=== PATIENT | female | born 1950 | race Caucasian/White ===

== ENCOUNTER → 2016-11-24 | Outpatient (CLI) | payer MEDICARE, OTHER ==
[2016-11-24 10:58] LABS: Blood Urea Nitrogen 10 mg/dL (7-17); Non-African American GFR(MDRD) >60 (>60 ml/min/1.73 sqM)
== END | disposition home or self-care (01) ==
LOC: LABWHC1 09:21
PROVIDERS: ATTEND Otolaryngology
DX: K11.5 Sialolithiasis (principal)
CPT/HCPCS: 36415; 82565; 84520

== ENCOUNTER → 2016-11-30 | Outpatient (CLI) | payer MEDICARE, OTHER ==
--- NOTE | 2016-11-30 10:06 | CT ---
EXAMINATION TYPE: CT soft tissue neck wo/w con DATE OF EXAM: 11/30/2016 9:53 AM COMPARISON: NONE HISTORY: R22.1 bilateral sialolitihiasis CONTRAST: CT scan of the neck is performed without and with IV Contrast, patient injected Omni 300/100 ml Unenhanced followed by Contrast enhanced CT of the neck was performed from the skull base through the lung apices. Unenhanced portion of the study fails to demonstrate evidence for sialolithiasis. AIRWAY: The supraglottic, glottic, and subglottic portions of the airway appear patent and free of mass. SALIVARY GLANDS: The submandibular and parotid glands are free of mass or inflammatory process. THYROID GLAND: No nodules or masses seen. LYMPH NODES: No adenopathy seen greater than 1cm. LUNG APICES: No nodule or mass is seen. OTHER: Vascular structures are patent. No significant degenerative change of the cervical spine. N o abscess seen. IMPRESSION: No distinct abnormality is appreciated.
== END | disposition home or self-care (01) ==
LOC: RADCTMAIN 09:08
PROVIDERS: ATTEND Otolaryngology
DX: K11.5 Sialolithiasis (principal)
CPT/HCPCS: 70492; Q9967

== ENCOUNTER → 2016-12-11 | Outpatient (CLI) | payer MEDICARE, OTHER ==
--- NOTE | 2016-12-11 16:55 | FL ---
EXAMINATION TYPE: FL sialography DATE OF EXAM: 12/11/2016 3:31 PM HISTORY: Swelling mass lump in neck Informed consent was obtained and all the patient's questions were answered. A 30-gauge sialography catheter was placed into the opening of the left-sided Martin's duct. Contras t was injected however there was abrupt termination of contrast approximately 2 cm from the Martin d uct opening indicating complete obstruction. Distal portions of the duct or intraglandular branches a re not visualized. 1. Complete obstruction of Omar's duct approximately 2 cm from its opening.
== END | disposition home or self-care (01) ==
LOC: RADFLWHC 14:08
PROVIDERS: ATTEND Otolaryngology
DX: K11.8 Other diseases of salivary glands (principal)
CPT/HCPCS: 70390; Q9965

== ENCOUNTER 2016-12-25 08:29 | Day surgery (SDC) | payer MEDICARE, OTHER ==
[2016-12-20 12:39] VITALS: BMI 36.3
--- NOTE | 2016-12-25 07:17 | HP ---
DATE OF ADMISSION: Chief complaint is swelling of the left submandibular gland. HISTORY OF PRESENT ILLNESS: The patient is a very pleasant 66-year-old female who was recently seen in my office claiming to have a history of passing several stones in her mouth. She was recently seen in Dr. Hernandez's office, an oral maxillofacial surgeon and it was noted that she had evidence of stones lodged in both [place]'s duct on the floor of the mouth. She has never had surgery for this. She states that periodically the left side of her neck would swell and eventually would gradually go down. During these episodes it would not require any type of antibiotic treatment and it was not excruciatingly painful. At the time that the patient was seen in my office, clinical examination with attention to the oropharynx and the floor of the mouth revealed that the patient had palpable stone in the oral portions of the right and left Omar's duct of the right and left submandibular gland. Subsequently, sialograms were performed and this showed that there were obstructing stones (sialolithiasis) of both Omar's duct with the left side being completely obstructed. After much discussion with the patient, she felt that the stones on the right side had been present longer and would prefer to have those removed first and we would bring her back at a later date to remove the stones from the left side. Therefore, it was recommended patient undergo a marsupialization of the right Omar's duct intraorally under general anesthesia. Past medical history reveals that the patient has no known allergies to medications. Current medications include: 1. Prilosec. 2. A baby aspirin. The review of systems is completely unremarkable. Previous surgeries include a radical hysterectomy, cholecystectomy, hemorrhoid surgery, she is 2 para, 2 , 0 miscarriage. PHYSICAL EXAMINATION: This patient is a very pleasant 66-year-old female who is alert and cooperative. HEENT EXAMINATION: Patient is normocephalic. Tympanic membranes are normal. Middle ear spaces are free of any fluid or infection. Pupils equal, round, and reactive to light and accommodation. Extraocular movements are within normal limits. Intranasal examination reveals moderate to severe septal deviation with compensatory hypertrophy of the inferior turbinates. Examination of oropharynx with attention to the floor of the mouth and bimanual palpation of the floor of mouth reveals both right and left Omar's duct occluded with multiple firm, well-circumscribed, hard stones. Palpation of the neck is negative for any significant swelling of either right or left submandibular gland. The remainder of the head and neck exam including cranial nerves 2 through 12 are all within normal limits. CHEST/CARDIOVASCULAR: Both lung north are clear to percussion and auscultation. Patient is in regular sinus rhythm. S1 and S2 are present without any murmurs, S3s or S4s. Peripheral pulses are bilaterally symmetrical and within normal limits. ABDOMEN: There is no evidence of any masses, megaly or tenderness. Abdomen is soft. Skin is unremarkable. Musculoskeletal and neurological are unremarkable. PELVIC/RECTAL EXAM: The pelvic rectal exam is deferred at this time because the patient has this done on a regular basis at her primary physician's office. The remainder of physical exam is unremarkable. IMPRESSION: Bilateral sialolithiasis of [place]'s duct of the right and left submandibular gland. PLAN: The patient is scheduled to undergo a marsupialization of the right [place]'s duct of the right submandibular gland under general anesthesia in the a.m. Attention RNs in the presurgical area. The only preoperative prophylactic antibiotics that were ordered by me or my office are 2 million units of aqueous Pen-G IV to be given once an intravenous line has been established. I did not order any other antibiotic such as Ancef or Flagyl. If these have been ordered, please return them to pharmacy and make sure that the patient's account is credited appropriately. In addition, I have ordered that the patient receive 1000 mg of Ofirmev IV, again to be given once an intravenous line has been established. The 2 million units of aqueous Pen-G and 1000 mg of Ofirmev, both to be given IV are the only medications that were ordered by my office. Again, I did not order any other prophylactic antibiotic such as Flagyl or and Ancef. I have explained the operation/procedure to the patient, including the risks, benefits, side effects, alternative therapies (including not receiving the proposed treatment or service), the likelihood of the patient achieving his/her goals, and potential recuperation problems for the procedure/sedation/analgesia, as well as any blood products, if indicated. I also explained to the patient the risks, benefits, and side effects of the alternatives, as well as the risks related to not receiving the proposed procedure, care treatment or services.
[~2016-12-25 08:29] MED LIST: DEXAMETHASONE SOD PHOSPHATE 10 MG/ML 1 ML VIAL IV ONE; FAMOTIDINE 20 MG/2 ML VIAL IV PRN; HYDROmorphone 1 MG/ML 1 ML SYRINGE IVP PRN; LACTATED RINGERS 1,000 ML IV SCH; LIDOCAINE 1% 20 ML VIAL (10MG/ML) FOR IV START INTRADERMA PRN; MIDAZOLAM 2 MG/2 ML VIAL IV PRN; ceFAZolin 2 GM in SODIUM CHLORIDE 0.9% 100 ML IVPB ONE; metroNIDAZOLE-NS PMX 500 MG in SALINE 1 100ML.BAG IVPB ONE
[2016-12-25] MEDS ORDERED: ACETAMINOPHEN IV (For NPO) 1,000 MG in EMPTY BAG 1 BAG IVPB ONE (09:45)
[2016-12-25] MEDS ORDERED: PENICILLIN G POTASSIUM 2,000,000 UNIT in DEXTROSE 5% IN WATER 100 ML IVPB ONE ×2 (09:45)
[2016-12-25] MEDS ORDERED: ROCURONIUM BROMIDE 10 MG/ML 10 ML VIAL IV ONE (10:29)
[2016-12-25] MEDS ORDERED: NEOSTIGMINE 1 MG/ML 10 ML VIAL ONE (10:29)
[2016-12-25] MEDS ORDERED: SUCCINYLCHOLINE CHLORIDE 100 MG/5 ML SYR IV ONE (10:29)
[2016-12-25] MEDS ORDERED: MIDAZOLAM 2 MG/2 ML VIAL ONE (10:29)
[2016-12-25] MEDS ORDERED: fentaNYL (PF) 50 MCG/ML 2 ML AMP ONE (10:29)
[2016-12-25] MEDS ORDERED: DEXAMETHASONE SOD PHOS (MDV) 100 MG/10 ML VIAL ONE (10:29)
[2016-12-25] MEDS ORDERED: LIDOCAINE 1% INJ 10MG/ML (20 ML MDV) ONE (10:29)
[2016-12-25] MEDS ORDERED: PROPOFOL 10 MG/ML 20 ML VIAL IV ONE (10:29)
[2016-12-25] MEDS ORDERED: EPINEPHrine 1 MG/ML (MDV) 30 ML VIAL TOPICAL ONE (12:13)
[2016-12-25] MEDS ORDERED: LACTATED RINGERS 1,000 ML IV ONE (12:39)
[2016-12-25 13:08] VITALS: TEMP 97.4
[2016-12-25 14:40] VITALS: BP 136/83; PULSE 85; RESP 16
--- NOTE | 2016-12-26 05:20 | OP ---
DATE OF SERVICE: 12/25/2016 SURGEON: SWATI DOW MD EMERGENCY DEPARTMENT COORDINATOR: PREOPERATIVE DIAGNOSIS: Sialolithiasis of the left and right submandibular glands. POSTOPERATIVE DIAGNOSIS: Sialolithiasis of the left and right submandibular glands. OPERATION: Marsupialization of the left Wood's duct of the submandibular gland/left. ANESTHESIA: General. ESTIMATED BLOOD LOSS: Less than 5 mL. SPECIMENS REMOVED: COMPLICATIONS: None. OPERATIVE FINDINGS: OPERATIVE PROCEDURE: This procedure was initially scheduled to take approximately one half hour to a maximum of 45 minutes instead surgery was started at approximately 10:25 a.m. and was not completed until approximately 12:30 p.m. for a total operating time of approximately 2 hours, which is well beyond the extended time. The reason for this extended time was because of the scarring around the orifice of the left and right Wood's duct which made finding the opening quite difficult despite use of the Zeiss operating microscope. In addition to this, there was a large stone lodged in the left Wood's duct. The patient was placed on the operating table in the supine position. After uneventful induction and endotracheal intubation, satisfactory general anesthesia was obtained. Next, the patient's head was draped in the usual and customary fashion. Initially a large adult dental bite block was placed into the right buccal sulcus. The tip of the tongue was grasped with a towel clip and pulled anteriorly. This exposed the floor of the mouth and orifices of the right and left Omar's duct of the right and left submandibular glands. Initial attempt was made to dilate the orifice of the right Wood's duct. However, this proved to be almost impossible to find because of extensive scarring. A similar problem was encountered by the radiology department in an attempt to perform a sialogram on this side. Therefore, we decided to perform the surgery on the left Omar's duct. Using the Zeiss operating microscope and under magnified visualization, once again it was noted that the orifice was extremely stenotic. Despite using lemon juice to stimulate the salivary flow another anesthetic agents very little salivary flow was able to be observed. The process of finding the actual opening of the duct was extremely tedious and required extensive bimanual palpation of the gland itself in an effort to be able to notice a few drops of the saliva coming from the stenotic duct of the orifice. Once this was discovered initially a lacrimal probe was carefully placed into the opening to slightly dilate it. This was followed by the use of multiple sizes of lacrimal probes which were carefully extended further and further into the duct with attention of trying to avoid creating a false lumen of the duct itself. In the process of advancing the lacrimal ducts to beginning with 00 and working up and to a #5, it is felt that the stone may have been pushed more distally in the duct than its original presentation. Therefore no attempt was made to try and retrieve it for concern of possible neural injury. The duct was widely dilated and then subsequently using a pair of curved Chavo scissors was widely marsupialized in the usual and customary fashion. The duct itself was prevented from resealing by placing several interrupted simple 4-0 sutures along the edges of the marsupialized duct on the right and left side. This would prevent the actual ductal tissue from resealing. Palpation of the gland did elicit some salivary flow. However, no stone was actually able to be elicited and it is felt that in the future that this patient will very easily pass a stone now that she has an extremely wide opening in the left Wood's duct. The plan is to bring her back in 2 or 3 weeks if necessary and possibly attempt marsupialize the right side also. It is interesting to note that the patient has had most of her problems on the left side although stones have been noted on the right Wood's duct also. At this point, the procedure was terminated. There were no intraoperative complications. The patient was given 10 mg of Decadron intraoperatively to reduce any postoperative edema of the tongue. Estimated blood loss was less than 5 mL. The patient tolerated the procedure well and was returned to recovery room in satisfactory condition. Again, this procedure which normally would take about 30 minutes took slightly over 2 hours which is well beyond the normal operating time and the reason for this was due to extenuating circumstances of the extreme scarring from the repeated infections and the chronic infection due to the presence of sialolithiasis in the left Wood's duct of the left submandibular gland.
== END 2016-12-25 14:51 | disposition home or self-care (01) ==
LOC: OR 08:29
PROVIDERS: ATTEND Otolaryngology
DX: K11.5 Sialolithiasis (principal); K21.9 Gastro-esophageal reflux disease without esophagitis; Z79.82 Long term (current) use of aspirin; Z79.899 Other long term (current) drug therapy
CPT/HCPCS: 42650; J0171; J2250; J1100 ×2; J2540; J2710; J2001; J3010; J0131; J0330; J2704

== ENCOUNTER → 2017-02-05 | Outpatient (CLI) | payer MEDICARE, OTHER ==
--- NOTE | 2017-02-06 10:57 | MM ---
Reason for exam: screening (asymptomatic). Last mammogram was performed 1 year ago. History: Patient is postmenopausal and has history of endometrial cancer at age 36. Family history of premenopausal breast cancer in sister at age 42 and breast cancer in paternal aunt. Took hormonal contraceptives for 4 years beginning at age 19. MG 3D Screening Mammo W/Cad Bilateral CC and MLO view(s) were taken. Prior study comparison: February 04, 2016, bilateral MG screening mammo w CAD. February 01, 2015, bilateral MG screening mammo w CAD. The breast tissue is heterogeneously dense. This may lower the sensitivity of mammography. Finding: There are typically benign dystrophic, round calcifications in both breasts. There is a chronic nodularity in the left breast. There is no discrete abnormality. ASSESSMENT: Benign, BI-RAD 2 RECOMMENDATION: Routine screening mammogram of both breasts in 1 year.
== END | disposition home or self-care (01) ==
LOC: RADMAMWWP 07:49
PROVIDERS: ATTEND Family Medicine
DX: Z12.31 Encounter for screening mammogram for malignant neoplasm of breast (principal)
CPT/HCPCS: 77063; G0202

== ENCOUNTER → 2018-05-01 | Outpatient (CLI) | payer MEDICARE, OTHER ==
[2018-05-01 07:43] LABS: Blood Urea Nitrogen 9 mg/dL (7-17)
--- NOTE | 2018-05-01 08:20 | CT ---
EXAMINATION TYPE: CT soft tissue neck w con DATE OF EXAM: 05/01/2018 COMPARISON: 11/30/2016 HISTORY: C7-year-old female Bilateral salivary stones TECHNIQUE: Contiguous axial scanning of the soft tissues of the neck performed with IV Contrast, adrian ent injected with 100 mL of Isovue 300. Coronal/sagittal reconstructions performed. CT DLP: 573.9 mGycm Automated exposure control for dose reduction was used. FINDINGS: Stable small 6 mm calcified nodule lower pole left thyroid lobe. No abnormal enlargement or inflammation is seen of either submandibular gland. No sialolith or abnorm al calcification is seen along the course of either submandibular duct. Parotid glands are satisfactory. Visualized intracranial structures, paranasal sinuses, orbits and globes, and mastoid air cells appea r clear. Nasopharynx is clear. Retropharyngeal course of the right ICA causing posterior impression on the right side of the hypopha rynx. Bilateral palatine tonsillar hypertrophy is unchanged with a small focus of calcification on the righ t suggesting sequela of prior infection. Additional bilateral lingual tonsillar hypertrophy effacing the vallecular space, unchanged from 11/30/2016 as well. The epiglottis and prevertebral soft tissues are within normal limits. Gliotic and subglottic structures as well as the tracheal column and visualized upper lungs are clear . A couple tiny emphysematous cysts may be present in the right upper lobe. Some prominent but nonenlarged upper cervical lymph nodes measure up to 1.2 cm short axis, unchanged from prior. No cervical lymphadenopathy by CT size criteria. Bones: No osseous destructive process. IMPRESSION: 1. BILATERAL PALATINE AND LINGUAL TONSILLAR HYPERTROPHY IS UNCHANGED FROM 11/30/2016. 2. NO DISCRETE SIALOLITH OR SALIVARY GLAND INFLAMMATION IS SEEN.
== END | disposition home or self-care (01) ==
LOC: RADCTMAIN 07:18
PROVIDERS: ATTEND Otolaryngology
DX: J35.1 Hypertrophy of tonsils (principal); K11.5 Sialolithiasis
CPT/HCPCS: 82565; 84520; 70491; 36415; Q9967

== ENCOUNTER → 2018-05-13 | Outpatient (CLI) | payer MEDICARE, OTHER ==
[2018-05-13 09:31] LABS: Uric Acid 4.2 mg/dL (3.7-7.4)
[2018-05-13 09:36] LABS: Ionized Calcium 5.1 mg/dL (4.5-5.3)
== END | disposition home or self-care (01) ==
LOC: LABWHC1 08:39
PROVIDERS: ATTEND Otolaryngology
DX: K11.5 Sialolithiasis (principal)
CPT/HCPCS: 36415; 82330; 84550

== ENCOUNTER → 2018-05-16 | Outpatient (CLI) | payer MEDICARE, OTHER ==
--- NOTE | 2018-05-16 08:19 | US ---
EXAMINATION TYPE: US thyroid st tissue head/neck DATE OF EXAM: 05/16/2018 COMPARISON: Correlation CT 05/01/2018 CLINICAL HISTORY: 67-year-old female E04.1 Thyroid Nodule. Thyroid nodule seen on CT TECHNIQUE: Multiple sonographic images of the thyroid gland are obtained. FINDINGS: GLAND SIZE: Right Lobe: 3.3 x 1.2 x 1.1 cm Overall Parenchyma: heterogenous Left Lobe: 3.2 x 1.2 x 1.3 cm Overall Parenchyma: heterogeneous Isthmus Thickness: 0.3 cm NODULES RIGHT: # of nodules measured on right: 1 1. 0.5 X 0.4 x 0.5 cm hypoechoic solid nodule at the mid pole with well-defined margins; This nodu le is wider than tall and shows no intranodular vascularity. Prior size: No prior LEFT: # of nodules measured on left: 2 1. 0.7 X 0.4 x 0.5 cm hypoechoic solid nodule medial with well-defined margins; This nodule is wide r than tall and shows no intranodular vascularity. Prior size: No prior 2. 0.4 X 0.3 x 0.5 cm calcified nodule at the deep mid pole with poorly defined margins. Prior size: Possible nodule seen on CT Bilateral neck scanned, no evidence of lymphadenopathy. Sonography notes: Multiple, sub-centimeter nodules (up to 4) on each lobe most of which appear cystic , largest nodule on each lobe measured, including small calcified nodule on left as seen on CT. IMPRESSION: Bilateral subcentimeter nodules measuring up to 7 mm with a 5 mm calcified nodule left lower pole as seen on CT.
[2018-05-16 08:35] LABS: T4, Free (Free Thyroxine) 0.81 ng/dL (0.78-2.19)
== END | disposition home or self-care (01) ==
LOC: RADUSWWP 07:25
PROVIDERS: ATTEND Otolaryngology
DX: E04.1 Nontoxic single thyroid nodule (principal)
CPT/HCPCS: 36415; 76536; 82306; 82330; 84439; 84443

== ENCOUNTER → 2018-06-24 | Outpatient (CLI) | payer MEDICARE, OTHER | END | disposition home or self-care (01) | LOC: LABWHC1 08:18 | PROVIDERS: ATTEND Otolaryngology | DX: E01.0 Iodine-deficiency related diffuse (endemic) goiter (principal); K11.7 Disturbances of salivary secretion | CPT/HCPCS: 36415; 82306; 84443; 86235 ==

== ENCOUNTER → 2018-07-05 | Outpatient (CLI) | payer MEDICARE, OTHER | END | disposition home or self-care (01) | LOC: LABWHC1 08:09 | PROVIDERS: ATTEND Otolaryngology | DX: E55.9 Vitamin D deficiency, unspecified (principal) | CPT/HCPCS: 36415; 82306 ==

== ENCOUNTER → 2019-02-07 | Outpatient (CLI) | payer MEDICARE, OTHER ==
[~2019-02-07] MED LIST changes: -DEXAMETHASONE SOD PHOSPHATE 10 MG/ML 1 ML VIAL IV ONE; +DOBUTamine DRIP for NUC MED 500 MG in DEXTROSE/WATER 1 250ML.BAG IV ONE; -FAMOTIDINE 20 MG/2 ML VIAL IV PRN; -HYDROmorphone 1 MG/ML 1 ML SYRINGE IVP PRN; -LACTATED RINGERS 1,000 ML IV SCH; -LIDOCAINE 1% 20 ML VIAL (10MG/ML) FOR IV START INTRADERMA PRN; -MIDAZOLAM 2 MG/2 ML VIAL IV PRN; -ceFAZolin 2 GM in SODIUM CHLORIDE 0.9% 100 ML IVPB ONE; -metroNIDAZOLE-NS PMX 500 MG in SALINE 1 100ML.BAG IVPB ONE
--- NOTE | 2019-02-07 12:38 | ECHOS ---
STRESS ECHOCARDIOGRAM DOBUTAMINE STRESS ECHO DATE OF SERVICE: 02/07/2019 INDICATIONS: Abnormal EKG. MEDICATIONS: Aspirin. BASELINE HEART RATE: 88 BASELINE BLOOD PRESSURE: 116/63 MAXIMUM HEART RATE: 129 MAXIMUM BLOOD PRESSURE: 204/59 85% MPHR: 129 100% MPHR: 152 METS: MAXIMUM STAGE REACHED: TOTAL EXERCISE TIME: CLINICAL INFORMATION: Dobutamine stress echocardiographic study was performed. Peak heart rate of 129 was achieved. Maximum blood pressure of 204/59 mmHg was noted. Resting EKG shows normal sinus rhythm with normal WA interval and QRS duration and normal ST-T waves. No ST- segment depression suggestive of ischemia is noted. The baseline echocardiographic images reveal normal left ventricular chamber size with normal left ventricular systolic function. At the peak dose of dobutamine infusion, normal increase in the wall thickness and contractility is noted. FINAL IMPRESSION: This dobutamine stress echocardiographic study is negative for stress-induced ischemia. EKG portion of the stress test is not suggestive of ischemia. MMODL / IJN: [id number] /
== END | disposition home or self-care (01) ==
LOC: RADNMMAIN 09:46
PROVIDERS: ATTEND Family Medicine
DX: R94.31 Abnormal electrocardiogram [ECG] [EKG] (principal)
CPT/HCPCS: C8930; J1250; Q9950; 93351

== ENCOUNTER → 2019-02-27 | Outpatient (CLI) | payer MEDICARE, OTHER ==
--- NOTE | 2019-02-28 11:48 | MM ---
Reason for exam: screening (asymptomatic). Last mammogram was performed 1 year ago. History: Patient is postmenopausal and has history of endometrial cancer at age 36. Family history of premenopausal breast cancer in sister at age 42 and breast cancer in paternal aunt. Took hormonal contraceptives for 4 years beginning at age 19. Physical Findings: A clinical breast exam by your physician is recommended on an annual basis and results should be correlated with mammographic findings. MG 3D Screening Mammo W/Cad Bilateral CC and MLO view(s) were taken. XCCL view(s) were taken of the right breast. Prior study comparison: February 20, 2018, bilateral MG 3d screening mammo w/cad. February 05, 2017, bilateral MG 3d screening mammo w/cad. There are scattered fibroglandular densities. No significant changes when compared with prior studies. ASSESSMENT: Benign, BI-RAD 2 RECOMMENDATION: Routine screening mammogram of both breasts in 1 year.
== END | disposition home or self-care (01) ==
LOC: RADMAMWWP 08:25
PROVIDERS: ATTEND Family Medicine
DX: Z12.31 Encounter for screening mammogram for malignant neoplasm of breast (principal)
CPT/HCPCS: 77063; 77067

== ENCOUNTER → 2020-06-30 | Outpatient (CLI) | payer MEDICARE, OTHER ==
--- NOTE | 2020-07-01 08:42 | MM ---
Reason for exam: screening (asymptomatic). Last mammogram was performed 1 year and 4 months ago. History: Patient is postmenopausal and has history of endometrial cancer at age 36. Family history of premenopausal breast cancer in sister at age 42 and breast cancer in paternal aunt. Took hormonal contraceptives for 4 years beginning at age 19. Physical Findings: A clinical breast exam by your physician is recommended on an annual basis and results should be correlated with mammographic findings. MG 3D Screening Mammo W/Cad Bilateral CC and MLO view(s) were taken. Prior study comparison: February 27, 2019, bilateral MG 3d screening mammo w/cad. February 20, 2018, bilateral MG 3d screening mammo w/cad. The breast tissue is heterogeneously dense. This may lower the sensitivity of mammography. Benign calcifications. There is chronic nodularity in the right breast. ASSESSMENT: Benign, BI-RAD 2 RECOMMENDATION: Routine screening mammogram of both breasts in 1 year.
== END | disposition home or self-care (01) ==
LOC: RADMAMWWP 09:17
PROVIDERS: ATTEND Family Medicine
DX: Z12.31 Encounter for screening mammogram for malignant neoplasm of breast (principal)
CPT/HCPCS: 77063; 77067

== ENCOUNTER → 2021-09-06 | Outpatient (CLI) | payer MEDICARE ==
--- NOTE | 2021-09-07 10:41 | MM ---
Reason for exam: screening (asymptomatic). Last mammogram was performed 1 year and 2 months ago. History: Patient is postmenopausal and has history of endometrial cancer at age 36. Family history of premenopausal breast cancer in sister at age 42 and breast cancer in paternal aunt. Took hormonal contraceptives for 4 years beginning at age 19. Physical Findings: A clinical breast exam by your physician is recommended on an annual basis and results should be correlated with mammographic findings. MG 3D Screening Mammo W/Cad Bilateral CC, MLO, and XCCL view(s) were taken. Prior study comparison: June 30, 2020, bilateral MG 3d screening mammo w/cad. February 27, 2019, bilateral MG 3d screening mammo w/cad. The breast tissue is heterogeneously dense. This may lower the sensitivity of mammography. Stable benign calcifications. There is no discrete abnormality. No significant changes when compared with prior studies. ASSESSMENT: Benign, BI-RAD 2 RECOMMENDATION: Routine screening mammogram of both breasts in 1 year.
== END | disposition home or self-care (01) ==
LOC: RADMAMWWP 09:19
PROVIDERS: ATTEND Family Medicine
DX: Z12.31 Encounter for screening mammogram for malignant neoplasm of breast (principal)
CPT/HCPCS: 77063; 77067

== ENCOUNTER → 2022-09-15 | Outpatient (CLI) | payer MEDICARE ==
--- NOTE | 2022-09-18 08:43 | MM ---
Reason for Exam: Screening (asymptomatic). Last mammogram was performed 1 year(s) and 1 month(s) ago. Patient History: Menarche at age 13. First Full-Term at age 20. Right ovary removed at age 36. Hysterectomy at age 36. Postmenopausal. Endometrial cancer, age 36. Hormonal Contraceptives, starting at age 19 for 4 years. Paternal aunt had breast cancer. Sister had breast cancer, age 42. Sister had breast cancer, age 55. Risk Values: Carmen 5 year model risk: 7.1%. NCI Lifetime model risk: 17.5%. Prior Study Comparison: 02/27/2019 Bilateral Screening Mammogram, [facility]. 06/30/2020 Bilateral Screening Mammogram, [facility]. 09/06/2021 Bilateral Screening Mammogram, [facility]. Tissue Density: The breast tissue is heterogeneously dense. This may lower the sensitivity of mammography. Findings: Analyzed By CAD. There is no suspicious group of microcalcifications or new suspicious mass in either breast. Stable benign calcifications. No significant change from prior exams. Overall Assessment: Benign, BI-RAD 2 Management: Screening Mammogram of both breasts in 1 year. A clinical breast exam by your physician is recommended on an annual basis and results should be correlated with mammographic findings. Electronically signed and approved by: Dion Delvalle D.O.
== END | disposition home or self-care (01) ==
LOC: RADMAMWWP 08:34
PROVIDERS: ATTEND Family Medicine
DX: Z12.31 Encounter for screening mammogram for malignant neoplasm of breast (principal); Z78.0 Asymptomatic menopausal state; Z80.3 Family history of malignant neoplasm of breast; Z90.721 Acquired absence of ovaries, unilateral
CPT/HCPCS: 77063; 77067

== ENCOUNTER 2022-11-27 11:33 | Emergency (ER) | payer MEDICARE ==
[2022-11-27 12:22] VITALS: BP 156/84; PULSE 96; RESP 18; TEMP 99.1
--- NOTE | 2022-11-27 12:51 | ED ---
Extremity Problem HPI - General Chief complaint: Extremity Injury, Lower Stated complaint: rt sided pain, unable to walk Time Seen by Provider: 11/27/22 12:27 Source: patient, family, RN notes reviewed Mode of arrival: wheelchair Limitations: no limitations - History of Present Illness Initial comments: This is a 72-year-old female who presents to the emergency department for right hip and thigh pain. States that this started last night and has since persisted. She has had problems like this before that often resolve on their own within a couple of minutes. She is having difficulty with ambulation. She took aspirin without relief. Denies any known injuries. She has not noticed any redness, swelling, or bruising to the area. Denies any fevers, chills, sore throat, cough, dyspnea, chest pain, palpitations, abdominal pain, nausea, vomiting, diarrhea, back pain, or headaches. MD Complaint: extremity pain Onset/Timin -: days(s) Location: right, lower extremity Worsens with: weight bearing, walking - Related Data Home Medications Medication Instructions Recorded Confirmed Aspirin [Adult Low Dose Aspirin EC] 81 mg PO DAILY 12/20/16 12/20/16 Cholecalciferol [Vitamin D3] 2,000 unit PO DAILY 12/20/16 12/25/16 Cyanocobalamin [Vitamin B-12] 1,000 mcg PO DAILY 12/20/16 12/25/16 L.acidoph,Paracasei, B.lactis 1 each PO DAILY 12/20/16 12/25/16 [Probiotic] Omeprazole [PriLOSEC] 20 mg PO QAM 12/20/16 12/25/16 Previous Rx's Medication Instructions Recorded cefUROXime axetiL [Ceftin] 500 mg PO BID #10 tab 12/24/16 HYDROcodone/APAP 5-325MG [[place] 1 tab PO Q4HR PRN #20 tab NS 12/25/16 5-325] HYDROcodone/APAP 5-325MG [[place] 1 tab PO Q6HR PRN 3 Days #12 tab 11/27/22 5-325] predniSONE 50 mg PO DAILY 5 Days #5 tab 11/27/22 Allergies Allergy/AdvReac Type Severity Reaction Status Date / Time No Known Allergies Allergy Verified 11/27/22 12:22 Review of Systems ROS Statement: Those systems with pertinent positive or pertinent negative responses have been documented in the HPI. ROS Other: All systems not noted in ROS Statement are negative. Past Medical History Past Medical History: Cancer, Eye Disorder, GERD/Reflux, Skin Disorder Additional Past Medical History / Comment(s): Hx cervical cancer 1985, psoriasis, current cataract left eye. History of Any Multi-Drug Resistant Organisms: None Reported Past Surgical History: Cholecystectomy, Hysterectomy Additional Past Surgical History / Comment(s): Hemorrhoidectomy. Past Anesthesia/Blood Transfusion Reactions: No Reported Reaction Past Psychological History: No Psychological Hx Reported Smoking Status: Never smoker Past Alcohol Use History: None Reported Past Drug Use History: None Reported - Past Family History Mother Family Medical History: No Reported History General Exam Limitations: no limitations General appearance: alert, in no apparent distress Head exam: Present: atraumatic, normocephalic, normal inspection Respiratory exam: Present: normal lung sounds bilaterally. Absent: respiratory distress, wheezes, rales, rhonchi, stridor Cardiovascular Exam: Present: regular rate, normal rhythm, normal heart sounds. Absent: systolic murmur, diastolic murmur, rubs, gallop, clicks Extremities exam: Present: other (Tenderness to palpation over the right lateral thigh. No overlying erythema, swelling, or ecchymosis. Full active and passive range of motion. 2+ dorsalis pedis and tibialis posterior pulses. Capillary refill less than 1 second.). Absent: calf tenderness Neurological exam: Present: alert, oriented X3, CN II-XII intact Psychiatric exam: Present: normal affect, normal mood Skin exam: Present: warm, dry, intact, normal color. Absent: rash Course Vital Signs 11/27/22 12:17 Temperature 99.1 F Pulse Rate 96 Respiratory 18 Rate Blood Pressure 156/84 O2 Sat by Pulse 97 Oximetry Medical Decision Making - Medical Decision Making This is a 72-year-old female who presents to the emergency department for right leg pain. Was pt. sent in by a medical professional or institution? @ -No Did you speak to anyone other than the patient for history? @ -Her Did you review nursing and triage notes? @ -Agree, accurate with regards to the patient's symptoms. Were old charts reviewed? @ -No Differential Diagnosis? @ -Fracture, sciatica, tendinitis, DVT, cellulitis, arterial occlusion, meralgia paresthetica, femoral neuropathy, tumor, lumbar radiculopathy. This is not meant to be an all-inclusive list. X-rays interpreted by me (1pt min.)? @ -XR of the right hip and femur obtained. My interpretation identifies no acute fractures or dislocations. U/S interpreted by me (1pt. min.)? @ -Duplex US of the right lower extremity obtained. My interpretation identifies no evidence of a DVT or superficial thrombophlebitis. What testing was considered but not performed? (CT, X-rays, U/S, labs)? Why? @ -None What meds were considered but not given? Why? @ -None Did you discuss the management of the patient with other professionals? @ -No Did you reconcile home meds? @ -No Was smoking cessation discussed for >3mins.? @ -No Was critical care preformed (if so, how long)? @ -No Were there social determinants of health that impacted care today? How? (Homelessness, low income, unemployed, alcoholism, drug addiction, transportation, low edu. Level, literacy, decrease access to med. care, penitentiary, rehab)? @ -No Was there de-escalation of care discussed even if they declined? (Discuss DNR or withdrawal of care, Hospice)? @ -No What co-morbidities impacted this encounter? (DM, HTN, Smoking, COPD, CAD, Cancer, CVA, Hep., AIDS, mental health diagnosis, sleep apnea, morbid obesity)? @ -Morbid obesity Was patient admitted / discharged? @ -Discharged. XR of the right hip and femur obtained without any acute changes. Duplex US of the right lower extremity also identifies no acute abnormalities. She was given [place] which improved symptoms to the point of her being able to move her leg. She declined any crutches. Symptoms consistent with a meralgia paresthetica or sciatica. Rx for prednisone and [place] provided with dosing instructions reviewed. I was only willing to provide the patient with [place] due to her refusing to ambulate otherwise and becomes she otherwise has no history of narcotic use. Instructed her to avoid any over the counter antiinflammatories such as Ibuprofen with the Prednisone. Advised that the [place] should be taken very sparingly and she should otherwise take Tylenol. Also advised that the [place] will likely cause her to be drowsy and she should avoid taking this before driving. Instructed her to lay on the left side and wear looser clothing. We also discussed that weight loss will help this issue. Information for orthopedic follow up provided in the event symptoms do not improve. Undiagnosed new problem with uncertain prognosis? @ -Right leg pain Drug Therapy requiring intensive monitoring for toxicity (Heparin, Nitro, Insulin, Cardizem)? @ -None Were any procedures done? @ -None Diagnosis/symptom? @ -Right leg pain Acute, or Chronic, or Acute on Chronic? @ -Acute Uncomplicated (without systemic symptoms) or Complicated (systemic symptoms)? @ -Uncomplicated Side effects of treatment? @ -None Exacerbation, Progression, or Severe Exacerbation] @ -Not applicable Poses a threat to life or bodily function? @ -Yes, impacting her ability to walk. Return precautions reviewed in depth, the patient is instructed to return to the emergency department with any new, worsening, or concerning symptoms. Patient verbalized understanding. This case was discussed in detail with the attending ED physician, Dr. Longoria. Presentation, findings, and treatment plan discussed in detail as well. - Radiology Data Radiology results: report reviewed, image reviewed Disposition Clinical Impression: Right leg pain Disposition: HOME SELF-CARE Instructions (If sedation given, give patient instructions): Meralgia Paresthetica (ED), Sciatica (ED), Leg Pain (ED) Additional Instructions: Return to the emergency department with any new, worsening, or concerning symptoms. Take the prednisone daily for 5 days. Do not take other [id number] anti-inflammatories such as ibuprofen with the prednisone. Take the [place] very sparingly when your pain is the most severe. Be aware that this may be sedating. Contact orthopedics as listed below for a follow-up appointment. Follow up with your primary care provider in 1-2 days. Prescriptions: HYDROcodone/APAP 5-325MG [[place] 5-325] 1 tab PO Q6HR PRN 3 Days #12 tab PRN Reason: Pain predniSONE 50 mg PO DAILY 5 Days #5 tab Is patient prescribed a controlled substance at d/c from ED?: Yes When asked, does pt state using other controlled substances?: No If prescribed controlled substance>3 days was MAPS reviewed?: Prescribed <3 Days Referrals: Prateek Martinez MD [Primary Care Provider] - 1-2 days Cameron Contreras MD [Medical Doctor] - 1-2 days
--- NOTE | 2022-11-27 13:16 | XR ---
EXAMINATION TYPE: XR Hip Complete RT DATE OF EXAM: 11/27/2022 1:12 PM INDICATION: Patient age:Female; 72 years old; Reason for study: Pain; PHH. COMPARISON: None. TECHNIQUE: The right hip was examined in frontal and lateral projections. FINDINGS: No evidence of any acute osseous pathology, joint dislocation, or soft tissue swelling. Sev eral surgical clips demonstrated within the right hemipelvis. IMPRESSION: No acute osseous pathology.
--- NOTE | 2022-11-27 13:17 | XR ---
EXAMINATION TYPE: XR femur RT DATE OF EXAM: 11/27/2022 1:12 PM INDICATION: Patient age:Female; 72 years old; Reason for study: Pain; COMPARISON: Right hip radiograph the same date. TECHNIQUE: The right femur was examined in AP and lateral projections. FINDINGS: No evidence of acute osseous pathology, joint dislocation, or soft tissue swelling. Severa l surgical clips demonstrated in the pelvis. Pelvic phleboliths identified. IMPRESSION: No acute osseous pathology.
[2022-11-27] MEDS: HYDROcodone/APAP 5-325MG 1 EACH TAB PO STA ×2 (13:21→13:26)
[2022-11-27] MEDS ORDERED: HYDROcodone/APAP 5-325MG 1 EACH TAB PO STA (13:27)
--- NOTE | 2022-11-27 14:19 | US ---
EXAMINATION TYPE: US venous doppler duplex LE RT DATE OF EXAM: 11/27/2022 2:08 PM COMPARISON: NONE CLINICAL HISTORY: Leg pain. lateral leg pain, no swelling, no h/o dvt SIDE PERFORMED: Right TECHNIQUE: The lower extremity deep venous system is examined utilizing real time linear array sonog ash with graded compression, doppler sonography and color-flow sonography. VESSELS IMAGED: Common Femoral Vein Deep Femoral Vein Greater Saphenous Vein * Femoral Vein Popliteal Vein Small Saphenous Vein * Proximal Calf Veins (* superficial vessels) Right Leg: Negative for DVT, Grayscale, color doppler, spectral doppler imaging performed of the luz marina p veins of the lower extremities. There is normal flow, compressibility, vascular waveforms. IMPRESSION: No evidence for deep vein thrombosis of the right lower extremity.
== END 2022-11-27 15:12 | disposition home or self-care (01) ==
LOC: EC 11:33
DX: M79.604 Pain in right leg (principal); K21.9 Gastro-esophageal reflux disease without esophagitis; Z79.82 Long term (current) use of aspirin; Z79.52 Long term (current) use of systemic steroids; Z79.899 Other long term (current) drug therapy
CPT/HCPCS: 73502; 99284

== ENCOUNTER → 2023-12-18 | Outpatient (CLI) | payer MEDICARE ==
--- NOTE | 2023-12-19 09:24 | MM ---
Reason for Exam: Screening (asymptomatic). Last mammogram was performed 1 year(s) and 3 month(s) ago. Patient History: Menarche at age 13. First Full-Term at age 20. Right ovary removed at age 36. Hysterectomy at age 36. Postmenopausal. Endometrial cancer, age 36. Hormonal Contraceptives, starting at age 19 for 4 years. Paternal aunt had breast cancer. Sister had breast cancer, age 42. Sister had breast cancer, age 55. Risk Values: Carmen 5 year model risk: 7.1%. NCI Lifetime model risk: 16.6%. Prior Study Comparison: 06/30/2020 Bilateral Screening Mammogram, [facility]. 09/06/2021 Bilateral Screening Mammogram, [facility]. 09/15/2022 Bilateral MG 3D screening mammo w/cad, [facility]. Tissue Density: The breast tissue is heterogeneously dense. This may lower the sensitivity of mammography. Findings: Analyzed By CAD. There is no suspicious group of microcalcifications or new suspicious mass in either breast. Benign-appearing calcifications. Overall Assessment: Benign, BI-RAD 2 Management: Screening Mammogram of both breasts in 1 year. . Patient should continue monthly self-breast exams. A clinical breast exam by your physician is recommended on an annual basis. This exam should not preclude additional follow-up of suspicious palpable abnormalities. Note on Carmen scores and lifetime risk: 1. A Carmen score greater than 3% is considered moderate risk. If this is the case, consider specialist referral to assess eligibility for a risk reducing agent. 2. If overall lifetime risk for the development of breast cancer is 20% or higher, the patient may qualify for future screening with alternating mammogram and breast MRI. Electronically signed and approved by: Prateek Pratt M.D. Radiologis
== END | disposition home or self-care (01) ==
LOC: RADMAMWWP 07:14
PROVIDERS: ATTEND Family Medicine
DX: Z12.31 Encounter for screening mammogram for malignant neoplasm of breast (principal); Z80.3 Family history of malignant neoplasm of breast; Z78.0 Asymptomatic menopausal state
CPT/HCPCS: 77063; 77067

== ENCOUNTER → 2024-04-15 | Outpatient (CLI) | payer MEDICARE ==
--- NOTE | 2024-04-15 11:25 | US ---
EXAMINATION TYPE: US abd limited kidneys/bladder DATE OF EXAM: 04/15/2024 COMPARISON: NONE CLINICAL INDICATION: Female, 73 years old with history of N39.0 URINARY TRACT INFECTION, SITE NOT SPE CIFIED; frequent UTI's. GB removed. TECHNIQUE: Multiple sonographic images of the right upper quadrant, bilateral kidneys, and bladder ar e obtained. FINDINGS: EXAM MEASUREMENTS: Liver Length: 17.6 cm CBD: 0.6 cm Right Kidney: 10.7 x 4.6 x 4.3 cm Left Kidney: 10.7 x 4.3 x 5.1 cm Pancreas: Tail obscured by overlying bowel gas, echogenic in appearance Liver: Echogenic. Upper limits of normal in size. Cystic appearing lesion left lobe. 1= 1.7 x 1.6 x 1.2 cm 2= cluster= 0.9 x 1.1 x 0.9 cm Gallbladder: Surgically absent CBD: wnl Right Kidney: No hydronephrosis or masses seen Left Kidney: No hydronephrosis or masses seen Bladder: distended, anechoic Bilateral Jets Seen IMPRESSION: 1. No evidence for acute process. 2. Hepatic steatosis. 3. Simple and slightly complex appearing hepatic cysts. No suspicious hepatic lesions.
== END | disposition home or self-care (01) ==
LOC: RADUSWWP 09:56
PROVIDERS: ATTEND Family Medicine
DX: K76.0 Fatty (change of) liver, not elsewhere classified (principal); K76.89 Other specified diseases of liver; N39.0 Urinary tract infection, site not specified
CPT/HCPCS: 76705; 76770